=== PATIENT | male | born 1950 | race Caucasian/White ===

== ENCOUNTER 2023-08-06 13:58 | Inpatient (IN) ==
--- NOTE | 2023-08-06 14:12 | Emergency Department Note ---
Impression & Plan Sepsis due to urinary tract infection, Hypoxia ED Provider Note NAME: MONA HAYNES AGE: 73 SEX: M : 1950 ARRIVES VIA: Walk-In INFORMANT: Patient ED PROVIDER(S): Irwin Oliveira DO CHIEF COMPLAINT: AMS HPI: Patient is a 73-year-old male who presents to the ER for altered mental status. Entire history is obtained from who is present at bedside. She notes that last night he started shaking. This lasted for short period of time. It started again today and lasted for over an hour. She notes he started vomiting and was not responding to her and consequently she brought him in. Unable to obtain any review of systems from the patient due to mentation/confusion as he denies all complaints with exception of chronic lower back pain. Additional history is obtained by patient when he woke up and admits that he has been having dysuria urgency and frequency for the past 3 to 4 days. ADDITIONAL HISTORY OBTAINED: Per HPI Chronic Medical/Social Conditions Affecting Care: Per HPI PAST MEDICAL HISTORY:See Below PAST SURGICAL HISTORY:See Below FAMILY HISTORY:See Below SOCIAL HISTORY:See Below HOME MEDICATIONS:See Below ALLERGIES:See Below VITALS:See Below PHYSICAL EXAMINATION: GENERAL: Sitting up in bed, alert, covered in vomit, ill-appearing, confused EYE EXAM: normal conjunctiva. PERRL and EOM's grossly intact. OROPHARYNX: no exudate, no erythema, lips, buccal mucosa, and tongue normal and mucous membranes are moist NECK: supple, no nuchal rigidity, no adenopathy, non-tender LUNGS: Clear to auscultation. Normal chest wall mechanics HEART: Tachycardic, S1 normal and S2 normal ABDOMEN: abdomen soft, non-tender, normo-active bowel sounds, no masses, no rebound or guarding. BACK: Back is symmetrical on inspection and there is no deformity, no midline tenderness, no CVA tenderness. SKIN: no rashes and no bruising UPPER EXTREMITIES: upper extremities are grossly normal. LOWER EXTREMITIES: No pitting edema. NEURO EXAM: Oriented to person but not place or year, cranial nerves II-XII intact, moving all extremities nonfocal MEDICAL DECISION MAKING: Patient is a 73-year-old male who presents the ER altered and confused initially. He was brought back to the resuscitation bay. IVs were established blood work was obtained. Labs show no significant leukocytosis or anemia. INR unremarkable. He was hypoxic and placed on 2 L nasal cannula. VBG with a pH 7.45 and a CO2 of 33. BMP with a slightly elevated glucose at 148. T. bili at 2.1. LFTs troponin was unremarkable. UA is consistent with UTI. Patient was given 2 L IV fluids as well as IV Zosyn initially. CT head of the head chest and abdomen pelvis was unremarkable. Patient was updated bedside. Discussed case with the hospitalist for further evaluation management treatment. Mentation did improve significantly. He did remain on 2 L nasal cannula throughout his stay in the ER. Heart rate did trend down. Consults/Care Managements Discussions: Per MDM Triage Nursing notes reviewed. Limited review of prior medical records performed Vital Signs: reviewed and remarkable for no significant abnormalities Differential diagnosis: Differential diagnosis includes etiologies such as sepsis, UTI, pneumonia, metabolic, electrolyte abnormalities, cardiac sources, intracerebral event, toxicologic, neurological, as well as others were entertained. ER treatment provided: See below Diagnostics interpreted by me include EKG and cardiac monitoring as listed below: -Cardiac Monitoring: An order was placed for continuous cardiac monitoring. The monitor shows a rate of 133 with sinus rhythm. -ECG: Sinus tachycardia rate of 132 Right bundle branch block T wave inversions and nonspecific ST wave changes V1 through V6 QTc 560 -Laboratory studies:Interpreted by me as stated above in MDM and shown below. Imaging studies: Xrays: As interpreted by me: Portable AP upright 1 view the chest shows no focal infiltrate CTs show: CT head chest abdomen pelvis as described above Procedures:none Critical Care: I have personally spent 35 minutes of critical care time in the direct management of this patient. This includes bedside care, interpretation of diagnostic studies, and testing, discussion with consultants, patient, and family members, and other required patient management activities. This 35 minutes is in excess of all separately billable procedures. Past Med/Surg History Problem List (Updated 08/06/23 @ 20:20 by Irwin Oliveira DO) Hypoxia (Acute) History of psoriasis Aspiration into airway Sepsis due to urinary tract infection (Acute) Social History Smoking Status: Never smoker Feels Safe at Home: Yes Allergies Allergies Allergy/AdvReac Type Severity Reaction Status Date / Time No Known Allergies Allergy Unverified 08/06/23 15:32 Home Meds Home Medications Medication Instructions Recorded Confirmed acetaminophen 500 mg tablet 1,000 mg PO Q6H PRN Pain 08/06/23 08/06/23 (Tylenol Extra Strength) diazepam 5 mg tablet 5 mg PO Q8 PRN Anxiety 08/06/23 08/06/23 doxycycline hyclate 50 mg capsule 50 mg PO DAILY 08/06/23 08/06/23 ergocalciferol (vitamin D2) 1,250 1,250 mcg PO WK 08/06/23 08/06/23 mcg (50,000 unit) capsule ibuprofen 200 mg tablet (Advil) 600 - 800 mg PO Q6H PRN Pain 08/06/23 08/06/23 ketoconazole 2 % shampoo 1 applic topical 2XWK 08/06/23 08/06/23 naproxen 500 mg tablet 500 mg PO BID 08/06/23 08/06/23 Results & Data (ED) Vital Signs Vital Signs - 24 hr 08/06/23 14:11 08/06/23 14:31 08/06/23 14:57 Temperature 38.5 C H Temperature Source Oral Pulse Rate 134 H 106 H Pulse Rate from SpO2 Sensor 106 H Respiratory Rate 22 24 Respiratory Effort / Characteristics Non-Labored Spontaneous Respiratory Depth Normal Respiratory Pattern Regular Blood Pressure 169/90 H 160/84 H Blood Pressure Mean 116 109 Blood Pressure Position Lying Pulse Oximetry 88 L 92 96 Oxygen Delivery Method Room Air Oxymask Oxymask Oxygen Flow Rate 5 5 Sepsis Recent Fever Within 48 Hours Yes Sepsis New/Unexplained Change in Mental Status Yes Sepsis Action Taken by Nursing Physician Notified 08/06/23 15:00 Temperature Temperature Source Pulse Rate 106 H Pulse Rate from SpO2 Sensor 105 H Respiratory Rate 24 Respiratory Effort / Characteristics Respiratory Depth Respiratory Pattern Blood Pressure 146/81 H Blood Pressure Mean 102 Blood Pressure Position Pulse Oximetry 95 Oxygen Delivery Method Oxymask Oxygen Flow Rate 5 Sepsis Recent Fever Within 48 Hours Sepsis New/Unexplained Change in Mental Status Sepsis Action Taken by Nursing Laboratory Data 08/06/23 14:06 08/06/23 14:06 Lab Results 08/06/23 08/06/23 08/06/23 Range/Units 14:06 14:18 14:22 WBC 5.35 (4.8-10.8) K/ul RBC 4.88 (4.70-6.10) M/uL Hgb 16.3 (14.0-18.0) g/dl POC Hgb 16.7 (14.0-18.0) g/dl Hct 45.9 (42.0-52.0) % POC Hct 49 (42-52) % MCV 94.1 (80.0-100.0) fL MCH 33.4 (25.0-34.0) pg MCHC 35.5 (32.0-36.0) g/dL RDW Std Deviation 44.5 (36.4-46.3) fL RDW Coeff of Gabriel 13.1 (11.5-14.5) % Plt Count 142 (130-400) K/uL MPV 9.7 (9.4-12.4) fL Immature Gran % (Auto) 0.2 % Neut % (Auto) 84.3 % Lymph % (Auto) 12.5 % [place] % (Auto) 1.3 % Eos % (Auto) 1.3 % Baso % (Auto) 0.4 % Neut # (Auto) 4.51 (1.40-6.50) K/uL Lymph # (Auto) 0.67 L (1.20-3.40) K/uL [place] # (Auto) 0.07 L (0.11-0.59) K/uL Eos # (Auto) 0.07 (0.00-0.50) K/uL Baso # (Auto) 0.02 (0.00-0.20) K/uL Immature Gran # (Auto) 0.01 (0.01-0.20) K/uL PT 10.4 (9.0-12.0) Seconds INR 1.0 (0.9-1.1) VBG pH 7.45 H (7.36-7.41) VBG pCO2 33 L (38-50) mmHg VBG pO2 52 mmHg VBG HCO3 23 mmol/L VBG O2 Saturation 87.0 % VBG Base Excess -0.3 mEq/L POC Sodium 138 (135-144) mmol/L Sodium 136 (136-145) mmol/L POC Potassium 3.6 (3.3-5.0) mmol/L Potassium 3.6 (3.5-5.1) mmol/L POC Chloride 103 (101-112) mmol/L Chloride 103 (98-107) mmol/L Carbon Dioxide 23 (21-32) mmol/L POC Total CO2 21 L (24-31) mmol/L Anion Gap 10 (3-11) POC Anion Gap 19.0 (16-25) mmol/L POC BUN 15 (7-18) mg/dl BUN 17 (6-23) mg/dl Creatinine 0.88 (0.6-1.4) mg/dl POC Creatinine 0.8 (0.6-1.3) mg/dl Est Cr Clr Drug Dosing 89.0 ml/min Est GFR ( Amer) 100.2 ml/min Est GFR (Non-Af Amer) 86.4 ml/min BUN/Creatinine Ratio 19.3 (10-20) Glucose 148 H (70-99(Fasting)) mg/dl POC Glucose (other) 145 H (70-99) mg/dl Lactate 2.0 (0.4-2.0) mmol/L Calcium 9.5 (8.6-10.3) mg/dl POC Ioniz Calcium Connie 1.14 (1.12-1.32) mmol/l Magnesium 1.7 (1.7-2.4) mg/dl Total Bilirubin 2.1 H (0.2-1.0) mg/dl Direct Bilirubin 0.2 (0-0.2) mg/dl AST 24 (13-39) U/L ALT 23 (7-52) U/L Alkaline Phosphatase 78 (34-104) U/L Troponin I High Sens 13.1 (0-20) pg/ml Total Protein 7.7 (6.0-8.3) gm/dl Albumin 4.7 (3.4-5.0) gm/dl Procalcitonin 0.15 (0-0.5) ng/ml Urine Color Urine Appearance (Clear) Urine pH (4.5-7.5) Ur Specific [place] (1.000-1.030) Urine Protein (Negative) Urine Glucose (UA) (Negative) Urine Ketones (Negative) Urine Blood (Negative) Urine Nitrite (Negative) Urine Bilirubin (Negative) Urine Urobilinogen (Negative) Ur Leukocyte Esterase (Negative) Urine WBC (Auto) (0-5) /hpf Urine RBC (Auto) (0-2) /hpf U Hyaline Cast (Auto) (0-2) /lpf U Epithel Cells (Auto) (0-2) /hpf Urine Bacteria (Auto) (None Seen) 08/06/23 Range/Units 14:35 WBC (4.8-10.8) K/ul RBC (4.70-6.10) M/uL Hgb (14.0-18.0) g/dl POC Hgb (14.0-18.0) g/dl Hct (42.0-52.0) % POC Hct (42-52) % MCV (80.0-100.0) fL MCH (25.0-34.0) pg MCHC (32.0-36.0) g/dL RDW Std Deviation (36.4-46.3) fL RDW Coeff of Gabriel (11.5-14.5) % Plt Count (130-400) K/uL MPV (9.4-12.4) fL Immature Gran % (Auto) % Neut % (Auto) % Lymph % (Auto) % [place] % (Auto) % Eos % (Auto) % Baso % (Auto) % Neut # (Auto) (1.40-6.50) K/uL Lymph # (Auto) (1.20-3.40) K/uL [place] # (Auto) (0.11-0.59) K/uL Eos # (Auto) (0.00-0.50) K/uL Baso # (Auto) (0.00-0.20) K/uL Immature Gran # (Auto) (0.01-0.20) K/uL PT (9.0-12.0) Seconds INR (0.9-1.1) VBG pH (7.36-7.41) VBG pCO2 (38-50) mmHg VBG pO2 mmHg VBG HCO3 mmol/L VBG O2 Saturation % VBG Base Excess mEq/L POC Sodium (135-144) mmol/L Sodium (136-145) mmol/L POC Potassium (3.3-5.0) mmol/L Potassium (3.5-5.1) mmol/L POC Chloride (101-112) mmol/L Chloride (98-107) mmol/L Carbon Dioxide (21-32) mmol/L POC Total CO2 (24-31) mmol/L Anion Gap (3-11) POC Anion Gap (16-25) mmol/L POC BUN (7-18) mg/dl BUN (6-23) mg/dl Creatinine (0.6-1.4) mg/dl POC Creatinine (0.6-1.3) mg/dl Est Cr Clr Drug Dosing ml/min Est GFR ( Amer) ml/min Est GFR (Non-Af Amer) ml/min BUN/Creatinine Ratio (10-20) Glucose (70-99(Fasting)) mg/dl POC Glucose (other) (70-99) mg/dl Lactate (0.4-2.0) mmol/L Calcium (8.6-10.3) mg/dl POC Ioniz Calcium Connie (1.12-1.32) mmol/l Magnesium (1.7-2.4) mg/dl Total Bilirubin (0.2-1.0) mg/dl Direct Bilirubin (0-0.2) mg/dl AST (13-39) U/L ALT (7-52) U/L Alkaline Phosphatase (34-104) U/L Troponin I High Sens (0-20) pg/ml Total Protein (6.0-8.3) gm/dl Albumin (3.4-5.0) gm/dl Procalcitonin (0-0.5) ng/ml Urine Color Yellow Urine Appearance Turbid A (Clear) Urine pH 6.5 (4.5-7.5) Ur Specific [place] 1.014 (1.000-1.030) Urine Protein Trace H (Negative) Urine Glucose (UA) Negative (Negative) Urine Ketones Negative (Negative) Urine Blood 1+ H (Negative) Urine Nitrite Positive A (Negative) Urine Bilirubin Negative (Negative) Urine Urobilinogen Negative (Negative) Ur Leukocyte Esterase 3+ H (Negative) Urine WBC (Auto) >50 H (0-5) /hpf Urine RBC (Auto) 3-5 H (0-2) /hpf U Hyaline Cast (Auto) 0-2 (0-2) /lpf U Epithel Cells (Auto) 0-2 (0-2) /hpf Urine Bacteria (Auto) 4+ H (None Seen) Administered Medications Acetaminophen (Acetaminophen 325 Mg Tab) 650 mg PO Q4H PRN PRN Reason: pain/fever Stop: 09/05/23 19:13 Last Admin: 08/06/23 19:50 Dose: 650 mg Documented By: ALISTAIR Sodium Chloride (Nss) 1,000 mls @ 100 mls/hr IV .Q10H NAWAF Stop: 09/05/23 19:13 Last Admin: 08/06/23 19:50 Dose: 100 mls/hr Documented By: ALISTAIR Discontinued Medications Acetaminophen (Acetaminophen 650 Mg Supp) 650 mg MI NOW STA Stop: 08/06/23 14:09 Last Admin: 08/06/23 15:06 Dose: Not Given Documented By: GARLAND Acetaminophen (Acetaminophen 325 Mg Tab) 650 mg PO NOW STA Stop: 08/06/23 14:59 Last Admin: 08/06/23 15:03 Dose: 650 mg Documented By: GARLAND Sodium Chloride (Nss) 1,000 mls @ 999 mls/hr IV .Q1H1M NAWAF Stop: 08/06/23 16:15 Last Infusion: 08/06/23 18:23 Dose: Infused Documented By: Admin: 08/06/23 17:22 Dose: 999 mls/hr Documented By: Infusion: 08/06/23 16:52 Dose: Infused Documented By: [facility] [place] Admin: 08/06/23 15:06 Dose: 999 mls/hr Documented By: GARLAND Piperacillin Sod/Tazobactam Sod (Zosyn) 4.5 gm in 100 mls @ 200 mls/hr IV NOW ONE Stop: 08/06/23 14:37 Last Infusion: 08/06/23 16:53 Dose: Infused Documented By: [facility] [place] Admin: 08/06/23 15:06 Dose: 200 mls/hr Documented By: GARLAND Ioversol (Optiray 320 125ml) 119 ml IV ONCE ONE Stop: 08/06/23 14:48 Last Admin: 08/06/23 14:47 Dose: 119 ml Documented By: GENARO Ondansetron HCl (Ondansetron Inj 2 Mg/Ml 2 Ml Vial) 4 mg IV NOW STA Stop: 08/06/23 14:59 Last Admin: 08/06/23 15:03 Dose: 4 mg Documented By: GARLAND Imaging Data Radiologist's Impression: Abdomen/Pelvis CT 08/06/23 14:06 CT abd pelvis IV con only CLINICAL HISTORY: sepsis TECHNIQUE: Helical axial images of the abdomen and pelvis were obtained and displayed. Automated dose lowering techniques and/or adjustment according to patient size were utilized for this exam. This exam was performed with intravenous contrast. CT DOSE: 3310.69 mGy.cm COMPARISON: None available at the time of this dictation. FINDINGS: Lower chest: Bibasilar atelectasis versus scarring is seen. Liver: Unremarkable. No focal lesions are seen. Gallbladder and biliary tree: No calcified gallstones. Normal caliber wall. No intra- or extrahepatic biliary ductal dilation. Pancreas: Unremarkable, no focal lesions. Spleen: Unremarkable. Adrenals: Unremarkable. Kidneys and ureters: Renal cysts are seen. Partial kidney is seen. Bladder: Unremarkable. Reproductive organs: Prostatic calcifications are seen which may represent prior hemorrhage or granulomatous disease. Bowel: The appendix is normal. There is a small hiatal hernia. Lymph nodes Retroperitoneal: Unremarkable. Pelvic: Unremarkable. Mesenteric: Unremarkable. Peritoneum: Normal. Vessels: Unremarkable. Abdominal wall: Unremarkable. Bones: Degenerative changes in the visualized spine. Grade 1 anterolisthesis is seen at L4-L5. IMPRESSION: No acute abnormalities and in particular no evidence of bowel obstruction. There is a small hiatal hernia which may be seen in gastroesophageal reflux. ACT 112: Negative or not required by law. Electronically signed by: Mark Malhotra M.D. 08/06/2023 3:17 PM Chest CTA 08/06/23 14:06 CT ANGIOGRAPHY OF THE CHEST, PULMONARY EMBOLUS PROTOCOL CLINICAL HISTORY: Vomiting. Diaphoresis. Evaluate for pulmonary embolus. COMPARISON STUDY: No previous studies for comparison. TECHNIQUE: Following IV administration of 119 mL of Optiray, helical axial images of the chest were obtained utilizing the pulmonary embolus protocol. Maximal intensity projections and sagittal and coronal reformats were viewed on an independent 3D workstation. IV contrast was administered without complication. Automated exposure control was utilized for the study. A dose lowering technique was utilized adhering to the principles of ALARA. FINDINGS: Left shoulder arthroplasty is incidentally noted. No pulmonary emboli are identified. There is no thoracic aortic dissection. Size of the heart is normal. There is no pericardial effusion. No enlarged axillary, mediastinal or hilar lymph nodes are present. There is no consolidation to suggest pneumonia. Subpleural opacities represent atelectasis. There is no pneumothorax or pleural effusion. There are multiple old left-sided rib fractures. No suspicious pulmonary nodules. No acute fractures within the bony thorax are present. Abdomen and pelvis CT will be reported separately. IMPRESSION: 1. No pulmonary emboli identified. 2. No acute intrathoracic findings. ACT 112: Negative or not required by law. Electronically signed by: Trey Reid M.D. 08/06/2023 3:17 PM Chest X-Ray 08/06/23 14:06 XR chest 1V portable CLINICAL HISTORY: Sepsis TECHNIQUE: Single frontal radiograph of the chest was obtained. Comparison: None available at the time of this dictation. FINDINGS: Left reverse shoulder arthroplasty is seen. Calcified aortic knob is seen. The lungs are clear. No evidence of pleural effusion or pneumothorax. IMPRESSION: No acute chest disease. ACT 112: Negative or not required by law. Electronically signed by: Mark Malhotra M.D. 08/06/2023 2:[address] 08/06/23 14:06 CT SCAN OF THE BRAIN WITHOUT IV CONTRAST CLINICAL HISTORY: Change in mental status. COMPARISON STUDY: No priors. TECHNIQUE: Unenhanced axial CT scan of the brain is performed from the vertex to the skull base. A dose lowering technique was utilized adhering to the principles of ALARA. FINDINGS: Brain parenchyma: There is age-related involutional change noting mild subcortical and periventricular microangiopathic disease. There is no hemorrhage, mass effect, or evidence of acute territorial ischemia by CT criteria. Carias-white matter differentiation is preserved. No extra-axial fluid collection is seen. Ventricles, sulci, cisterns: Prominent secondary to involutional change. Intracranial vasculature: There is atherosclerotic calcification of the cavernous carotid and vertebral arteries. Calvarium: Unremarkable. Sinuses and mastoids: The visualized paranasal sinuses are clear. The mastoid air cells are well pneumatized. Orbits: The bony orbits are grossly intact. IMPRESSION: There is no hemorrhage, mass effect, or evidence of acute territorial ischemia by CT criteria. ACT 112: Negative or not required by law. Electronically signed by: Obed Alvarez M.D. 08/06/2023 3:12 PM Discharge Plan Visit Data Chief Complaint: Illness Stated Complaint: SHAKES, VOMITING ED Provider: Irwin Oliveira Discharge Problem: Sepsis due to urinary tract infection, Hypoxia Patient Disposition: Admitted As Inpatient Discharge Instructions Interventions: ED Discharge Assessment Last Done: 08/06/23 18:25
[2023-08-06 14:21] LABS: Base Excess VBG -0.3 mEq/L; HCO3 VBG 23 mmol/L; PCO2 VBG 33 mmHg (38-50); PO2 VBG 52 mmHg; pH VBG 7.45 (7.36-7.41)
[2023-08-06 14:23] LABS: Basophils # (auto) 0.02 K/uL (0.00-0.20); Basophils % (auto) 0.4 %; Eosinophils # (auto) 0.07 K/uL (0.00-0.50); Eosinophils % (auto) 1.3 %; Hematocrit (blood only) 45.9 % (42.0-52.0); Hemoglobin 16.3 g/dl (14.0-18.0); Immature Granulocytes # (auto) 0.01 K/uL (0.01-0.20); Immature Granulocytes % (auto) 0.2 %; Lymphocytes # (auto) 0.67 K/uL (1.20-3.40); Lymphocytes % (auto) 12.5 %; Mean Corpuscular Hemoglobin 33.4 pg (25.0-34.0); Mean Corpuscular Hgb Conc 35.5 g/dL (32.0-36.0); Mean Corpuscular Volume 94.1 fL (80.0-100.0); Mean Platelet Volume 9.7 fL (9.4-12.4); Monocytes # (auto) 0.07 K/uL (0.11-0.59); Monocytes % (auto) 1.3 %; Neutrophils # (auto) 4.51 K/uL (1.40-6.50); Neutrophils % (auto) 84.3 %; Platelet Count 142 K/uL (130-400); RDW Coefficient of Variation 13.1 % (11.5-14.5); RDW Standard Deviation 44.5 fL (36.4-46.3); Red Blood Count 4.88 M/uL (4.70-6.10); White Blood Count 5.35 K/ul (4.8-10.8)
[2023-08-06 14:32] LABS: iSTAT Creatinine 0.8 mg/dl (0.6-1.3); iSTAT Hemoglobin 16.7 g/dl (14.0-18.0); iSTAT Ionized Calcium 1.14 mmol/l (1.12-1.32); iSTAT Potassium 3.6 mmol/L (3.3-5.0)
[2023-08-06 14:44] LABS: Albumin Level 4.7 gm/dl (3.4-5.0); BUN Creatinine Ratio 19.3 (10-20); Bilirubin Direct 0.2 mg/dl (0-0.2); Bilirubin,Total 2.1 mg/dl (0.2-1.0); Calcium 9.5 mg/dl (8.6-10.3); Est GFR (African American) 100.2 ml/min; Est GFR (Non-African American) 86.4 ml/min; Magnesium 1.7 mg/dl (1.7-2.4); Potassium 3.6 mmol/L (3.5-5.1); Total Protein 7.7 gm/dl (6.0-8.3)
[2023-08-06] MEDS: OPTIRAY 320 125ml IV ONE (14:47)
[2023-08-06 14:48] LABS: Troponin I High Sensitivity 13.1 pg/ml (0-20)
--- NOTE | 2023-08-06 14:57 | XRay Report ---
XR chest 1V portable CLINICAL HISTORY: Sepsis TECHNIQUE: Single frontal radiograph of the chest was obtained. Comparison: None available at the time of this dictation. FINDINGS: Left reverse shoulder arthroplasty is seen. Calcified aortic knob is seen. The lungs are clear. No ev idence of pleural effusion or pneumothorax. IMPRESSION: No acute chest disease. ACT 112: Negative or not required by law. Electronically signed by: Mark Malhotra M.D. 08/06/2023 2:55 PM
[2023-08-06 15:00] LABS: Appearance Urine Turbid (Clear); Bacteria Urine Automated 4+ (None Seen); Bilirubin Urine Negative (Negative); Blood Urine 1+ (Negative); Cast Urine Automated 0-2 /lpf (0-2); Color Urine Yellow; Epithelial Cell Urine Auto 0-2 /hpf (0-2); Glucose Urine UA Negative (Negative); Ketones Urine Negative (Negative); Leukocyte Esterase Urine 3+ (Negative); Nitrite Urine Positive (Negative); Protein Urine Trace (Negative); Specific Gravity Urine 1.014 (1.000-1.030); Urobilinogen Urine Negative (Negative); WBC Urine Automated >50 /hpf (0-5); pH Urine 6.5 (4.5-7.5)
[2023-08-06] MEDS: ONDANSETRON INJ 2 MG/ML 2 ML VIAL IV STA (15:03)
[2023-08-06] MEDS: ACETAMINOPHEN 325 MG TAB PO STA (15:03)
[2023-08-06 15:04] LABS: Prothrombin Time 10.4 Seconds (9.0-12.0)
[2023-08-06] MEDS: SODIUM CHLORIDE 0.9% 1,000 ML IV SCH ×2 (15:06→19:50)
[2023-08-06] MEDS: ACETAMINOPHEN 650 MG SUPP PR STA (15:06)
[2023-08-06] MEDS: PIPERACILLIN/TAZOBACTAM 4.5 GM/100 ML BAG IV ONE (15:06)
--- NOTE | 2023-08-06 15:13 | CT Scan Report ---
CT SCAN OF THE BRAIN WITHOUT IV CONTRAST CLINICAL HISTORY: Change in mental status. COMPARISON STUDY: No priors. TECHNIQUE: Unenhanced axial CT scan of the brain is performed from the vertex to the skull base. A do se lowering technique was utilized adhering to the principles of ALARA. FINDINGS: Brain parenchyma: There is age-related involutional change noting mild subcortical and periventricula r microangiopathic disease. There is no hemorrhage, mass effect, or evidence of acute territorial isc hemia by CT criteria. Carias-white matter differentiation is preserved. No extra-axial fluid collection is seen. Ventricles, sulci, cisterns: Prominent secondary to involutional change. Intracranial vasculature: There is atherosclerotic calcification of the cavernous carotid and vertebr al arteries. Calvarium: Unremarkable. Sinuses and mastoids: The visualized paranasal sinuses are clear. The mastoid air cells are well pneu matized. Orbits: The bony orbits are grossly intact. IMPRESSION: There is no hemorrhage, mass effect, or evidence of acute territorial ischemia by CT jesika hdz. ACT 112: Negative or not required by law. Electronically signed by: Obed Alvarez M.D. 08/06/2023 3:12 PM
--- NOTE | 2023-08-06 15:19 | CT Scan Report ---
CT ANGIOGRAPHY OF THE CHEST, PULMONARY EMBOLUS PROTOCOL CLINICAL HISTORY: Vomiting. Diaphoresis. Evaluate for pulmonary embolus. COMPARISON STUDY: No previous studies for comparison. TECHNIQUE: Following IV administration of 119 mL of Optiray, helical axial images of the chest were o btained utilizing the pulmonary embolus protocol. Maximal intensity projections and sagittal and cor onal reformats were viewed on an independent 3D workstation. IV contrast was administered without co mplication. Automated exposure control was utilized for the study. A dose lowering technique was ut ilized adhering to the principles of ALARA. FINDINGS: Left shoulder arthroplasty is incidentally noted. No pulmonary emboli are identified. Ther e is no thoracic aortic dissection. Size of the heart is normal. There is no pericardial effusion. No enlarged axillary, mediastinal or hilar lymph nodes are present. There is no consolidation to sugges t pneumonia. Subpleural opacities represent atelectasis. There is no pneumothorax or pleural effusion . There are multiple old left-sided rib fractures. No suspicious pulmonary nodules. No acute fracture s within the bony thorax are present. Abdomen and pelvis CT will be reported separately. IMPRESSION: 1. No pulmonary emboli identified. 2. No acute intrathoracic findings. ACT 112: Negative or not required by law. Electronically signed by: Trey Reid M.D. 08/06/2023 3:17 PM
--- NOTE | 2023-08-06 15:19 | CT Scan Report ---
CT abd pelvis IV con only CLINICAL HISTORY: sepsis TECHNIQUE: Helical axial images of the abdomen and pelvis were obtained and displayed. Automated dose lowering techniques and/or adjustment according to patient size were utilized for this exam. This e xam was performed with intravenous contrast. CT DOSE: 3310.69 mGy.cm COMPARISON: None available at the time of this dictation. FINDINGS: Lower chest: Bibasilar atelectasis versus scarring is seen. Liver: Unremarkable. No focal lesions are seen. Gallbladder and biliary tree: No calcified gallstones. Normal caliber wall. No intra- or extrahepatic biliary ductal dilation. Pancreas: Unremarkable, no focal lesions. Spleen: Unremarkable. Adrenals: Unremarkable. Kidneys and ureters: Renal cysts are seen. Partial kidney is seen. Bladder: Unremarkable. Reproductive organs: Prostatic calcifications are seen which may represent prior hemorrhage or granul omatous disease. Bowel: The appendix is normal. There is a small hiatal hernia. Lymph nodes Retroperitoneal: Unremarkable. Pelvic: Unremarkable. Mesenteric: Unremarkable. Peritoneum: Normal. Vessels: Unremarkable. Abdominal wall: Unremarkable. Bones: Degenerative changes in the visualized spine. Grade 1 anterolisthesis is seen at L4-L5. IMPRESSION: No acute abnormalities and in particular no evidence of bowel obstruction. There is a small hiatal he rnia which may be seen in gastroesophageal reflux. ACT 112: Negative or not required by law. Electronically signed by: Mark Malhotra M.D. 08/06/2023 3:17 PM
--- NOTE | 2023-08-06 15:26 | Electrocardiogram Report ---
Test Reason : Blood Pressure : / mmHG Vent. Rate : 132 BPM Atrial Rate : 132 BPM P-R Int : 134 ms QRS Dur : 120 ms QT Int : 378 ms P-R-T Axes : 051 026 012 degrees QTc Int : 560 ms Sinus tachycardia Left atrial enlargement Right bundle branch block T wave abnormality, consider inferolateral ischemia Abnormal ECG No previous ECGs available Confirmed by Teto Lawson ([id number]) on 08/06/2023 3:26:09 PM Referred By: REFERRED SELF Confirmed By:Teto Lawson
--- NOTE | 2023-08-06 16:54 | History & Physical Report ---
Date of Service August 06, 2023 Assessment & Plan (1) Sepsis due to urinary tract infection: (2) Hypoxia: (3) Aspiration into airway: (4) History of psoriasis: Plan Sepsis due to UTI- ongoing dysuria for a week and had rigors over past 3 days. Encephalopathic prior to presentation with vomiting and hypoxia likely due to aspiration. Now improved and back to baseline. Met sepsis criteria with fever, tachycardia, tachypnea but normal WBC, procal and lactic acid. UA with UTI. CT A/P with no acute abnormality. Started on zosyn for UTI and also to cover for suspected aspiration. WIll continue zosyn pending final blood and urine clx results. Continue gentle IVF. Hypoxia- likely due to aspiration from vomiting. Was on 5 L, now on room air and saturating 93%. Resolved. CT chest with no PE or acute abnormality. Acute encephalopathy from sepsis- resolved. Now on baseline, CT head unremarkable History of psoriasis- takes meds daily, unknown. will bring the meds. DVT ppx- sc lovenox Dispo- Medsurg on tele Updated at bedside Time spent- Approx 75 mins Full code History of Present Illness Chief Complaint: UTI, Rigors, vomiting Primary Care Provider: NO PCP Herb Martinez is a 73y/o M with history of psoriasis who presented to the ED for evaluation of illness x 1 week. History obtained from patient, at bedside and associated chart review. Patient states he has been feeling ill for the past week. Mentions he has been experiencing shakes/chills for the last 3 days. Has had urinary infections before, approximately 3x. Patient is from [place] and was going to [place] for a concert; subsequently got sick during the car ride. His shakes/chills got worse, and he ultimately threw up in the car. Patient really doesn't remember what happened in the car. denies any wheezing, just projectile vomiting x 2 occurrences. Patient does not smoke, does not drink alcohol regularly. states that his feet have been swollen lately, doesn't notice any changes in the swelling throughout the day. No known fevers per his . His urine was malodorous today, no overt color change of his urine noted. PMH- Psoriasis PSH- not significant FH- not pertinent Social history- does not smoke or drink alcohol NKDA Allergies Allergy/AdvReac Type Severity Reaction Status Date / Time No Known Allergies Allergy Unverified 08/06/23 15:32 Home Medications Medication Instructions Recorded Confirmed Type acetaminophen 500 mg tablet 1,000 mg PO Q6H PRN Pain 08/06/23 08/06/23 History (Tylenol Extra Strength) diazepam 5 mg tablet 5 mg PO Q8 PRN Anxiety 08/06/23 08/06/23 History doxycycline hyclate 50 mg capsule 50 mg PO DAILY 08/06/23 08/06/23 History ergocalciferol (vitamin D2) 1,250 1,250 mcg PO WK 08/06/23 08/06/23 History mcg (50,000 unit) capsule ibuprofen 200 mg tablet (Advil) 600 - 800 mg PO Q6H PRN Pain 08/06/23 08/06/23 History ketoconazole 2 % shampoo 1 applic topical 2XWK 08/06/23 08/06/23 History naproxen 500 mg tablet 500 mg PO BID 08/06/23 08/06/23 History Past Med/Surg History Problem List (Updated 08/06/23 @ 17:20 by Demario Strickland MD) Hypoxia History of psoriasis Aspiration into airway Sepsis due to urinary tract infection Social History Smoking Status: Never smoker Feels Safe at Home: Yes Review of Systems Review of Systems: At least ten systems reviewed and negative, except as noted in the HPI. Physical Exam Physical Exam: General: Lying comfortably in bed, not in distress, on room air HEENT: EOMI, CHARLIE, MMM Chest: Clear breath sounds bilaterally, no wheezes or crackles CVS: Regular rate and rhythm, normal heart sounds, no murmur Abdomen: Soft, non tender, not distended, normal bowel sounds Neuro: Awake, alert, oriented, conversing well, non focal Extremities: No cyanosis, clubbing or edema Results & Data Results & Data Vital Signs (Past 12 Hours) Vital Signs Temp Pulse Resp BP Pulse Ox O2 Del Method O2 Flow Rate 08/06/23 16:27 108 H 32 H 121/73 94 Oxymask 5 08/06/23 16:06 108 H 08/06/23 16:00 108 H 32 H 134/82 98 Oxymask 5 08/06/23 15:57 108 H 35 H 134/78 95 Oxymask 5 08/06/23 15:00 106 H 24 146/81 H 95 Oxymask 5 08/06/23 14:57 106 H 24 160/84 H 96 Oxymask 5 08/06/23 14:31 92 Oxymask 5 08/06/23 14:11 38.5 C H 134 H 22 169/90 H 88 L Room Air Laboratory Results Short CBC 08/06/23 Range/Units 14:06 WBC 5.35 (4.8-10.8) K/ul Hgb 16.3 (14.0-18.0) g/dl Hct 45.9 (42.0-52.0) % Plt Count 142 (130-400) K/uL BMP 08/06/23 14:06 Sodium 136 Potassium 3.6 Chloride 103 Carbon Dioxide 23 BUN 17 Creatinine 0.88 Glucose 148 H Calcium 9.5 Liver Function 08/06/23 Range/Units 14:06 Total Bilirubin 2.1 H (0.2-1.0) mg/dl Direct Bilirubin 0.2 (0-0.2) mg/dl AST 24 (13-39) U/L ALT 23 (7-52) U/L Alkaline Phosphatase 78 (34-104) U/L Albumin 4.7 (3.4-5.0) gm/dl Urine 08/06/23 Range/Units 14:35 Urine Color Yellow Urine Appearance Turbid A (Clear) Urine pH 6.5 (4.5-7.5) Ur Specific [place] 1.014 (1.000-1.030) Urine Protein Trace H (Negative) Urine Glucose (UA) Negative (Negative) Diagnostic Findings Abdomen/Pelvis CT 08/06/23 14:06 CT abd pelvis IV con only CLINICAL HISTORY: sepsis TECHNIQUE: Helical axial images of the abdomen and pelvis were obtained and displayed. Automated dose lowering techniques and/or adjustment according to patient size were utilized for this exam. This exam was performed with intravenous contrast. CT DOSE: 3310.69 mGy.cm COMPARISON: None available at the time of this dictation. FINDINGS: Lower chest: Bibasilar atelectasis versus scarring is seen. Liver: Unremarkable. No focal lesions are seen. Gallbladder and biliary tree: No calcified gallstones. Normal caliber wall. No intra- or extrahepatic biliary ductal dilation. Pancreas: Unremarkable, no focal lesions. Spleen: Unremarkable. Adrenals: Unremarkable. Kidneys and ureters: Renal cysts are seen. Partial kidney is seen. Bladder: Unremarkable. Reproductive organs: Prostatic calcifications are seen which may represent prior hemorrhage or granulomatous disease. Bowel: The appendix is normal. There is a small hiatal hernia. Lymph nodes Retroperitoneal: Unremarkable. Pelvic: Unremarkable. Mesenteric: Unremarkable. Peritoneum: Normal. Vessels: Unremarkable. Abdominal wall: Unremarkable. Bones: Degenerative changes in the visualized spine. Grade 1 anterolisthesis is seen at L4-L5. IMPRESSION: No acute abnormalities and in particular no evidence of bowel obstruction. There is a small hiatal hernia which may be seen in gastroesophageal reflux. ACT 112: Negative or not required by law. Electronically signed by: Mark Malhotra M.D. 08/06/2023 3:17 PM Chest CTA 08/06/23 14:06 CT ANGIOGRAPHY OF THE CHEST, PULMONARY EMBOLUS PROTOCOL CLINICAL HISTORY: Vomiting. Diaphoresis. Evaluate for pulmonary embolus. COMPARISON STUDY: No previous studies for comparison. TECHNIQUE: Following IV administration of 119 mL of Optiray, helical axial images of the chest were obtained utilizing the pulmonary embolus protocol. Maximal intensity projections and sagittal and coronal reformats were viewed on an independent 3D workstation. IV contrast was administered without complication. Automated exposure control was utilized for the study. A dose lowering technique was utilized adhering to the principles of ALARA. FINDINGS: Left shoulder arthroplasty is incidentally noted. No pulmonary emboli are identified. There is no thoracic aortic dissection. Size of the heart is normal. There is no pericardial effusion. No enlarged axillary, mediastinal or hilar lymph nodes are present. There is no consolidation to suggest pneumonia. Subpleural opacities represent atelectasis. There is no pneumothorax or pleural effusion. There are multiple old left-sided rib fractures. No suspicious pulmonary nodules. No acute fractures within the bony thorax are present. Abdomen and pelvis CT will be reported separately. IMPRESSION: 1. No pulmonary emboli identified. 2. No acute intrathoracic findings. ACT 112: Negative or not required by law. Electronically signed by: Trey Reid M.D. 08/06/2023 3:17 PM Chest X-Ray 08/06/23 14:06 XR chest 1V portable CLINICAL HISTORY: Sepsis TECHNIQUE: Single frontal radiograph of the chest was obtained. Comparison: None available at the time of this dictation. FINDINGS: Left reverse shoulder arthroplasty is seen. Calcified aortic knob is seen. The lungs are clear. No evidence of pleural effusion or pneumothorax. IMPRESSION: No acute chest disease. ACT 112: Negative or not required by law. Electronically signed by: Mark Malhotra M.D. 08/06/2023 2:[address] 08/06/23 14:06 CT SCAN OF THE BRAIN WITHOUT IV CONTRAST CLINICAL HISTORY: Change in mental status. COMPARISON STUDY: No priors. TECHNIQUE: Unenhanced axial CT scan of the brain is performed from the vertex to the skull base. A dose lowering technique was utilized adhering to the principles of ALARA. FINDINGS: Brain parenchyma: There is age-related involutional change noting mild subcortical and periventricular microangiopathic disease. There is no hemorrhage, mass effect, or evidence of acute territorial ischemia by CT criteria. Carias-white matter differentiation is preserved. No extra-axial fluid collection is seen. Ventricles, sulci, cisterns: Prominent secondary to involutional change. Intracranial vasculature: There is atherosclerotic calcification of the cavernous carotid and vertebral arteries. Calvarium: Unremarkable. Sinuses and mastoids: The visualized paranasal sinuses are clear. The mastoid air cells are well pneumatized. Orbits: The bony orbits are grossly intact. IMPRESSION: There is no hemorrhage, mass effect, or evidence of acute territorial ischemia by CT criteria. ACT 112: Negative or not required by law. Electronically signed by: Obed Alvarez M.D. 08/06/2023 3:12 PM Medications Administered Discontinued Medications Acetaminophen (Acetaminophen 650 Mg Supp) 650 mg ID NOW STA Stop: 08/06/23 14:09 Last Admin: 08/06/23 15:06 Dose: Not Given Documented By: GARLAND Acetaminophen (Acetaminophen 325 Mg Tab) 650 mg PO NOW STA Stop: 08/06/23 14:59 Last Admin: 08/06/23 15:03 Dose: 650 mg Documented By: GARLAND Sodium Chloride (Nss) 1,000 mls @ 999 mls/hr IV .Q1H1M NAWAF Stop: 08/06/23 16:15 Last Admin: 08/06/23 15:06 Dose: 999 mls/hr Documented By: GARLAND Piperacillin Sod/Tazobactam Sod (Zosyn) 4.5 gm in 100 mls @ 200 mls/hr IV NOW ONE Stop: 08/06/23 14:37 Last Admin: 08/06/23 15:06 Dose: 200 mls/hr Documented By: GARLAND Ioversol (Optiray 320 125ml) 119 ml IV ONCE ONE Stop: 08/06/23 14:48 Last Admin: 08/06/23 14:47 Dose: 119 ml Documented By: VERONAK Ondansetron HCl (Ondansetron Inj 2 Mg/Ml 2 Ml Vial) 4 mg IV NOW STA Stop: 08/06/23 14:59 Last Admin: 08/06/23 15:03 Dose: 4 mg Documented By: GARLAND Code Status & VTE Plan Code Status FULL CODE VTE Prophylaxis Plan VTE Prophylaxis will be ordered: Yes Supervising Physician Co-Signing Physician Notes Patient was seen and examined with Joyce ZAZUETA at bedside. Chart reviewed. Case discussed with her and agree with the documentation above. I have edited the HPI, PE and A/P wherever necessary.
[2023-08-06] MEDS ORDERED: diazePAM 5 MG TABLET PO PRN (17:47)
[2023-08-06] MEDS ORDERED: ALUMINUM/MAGNESIUM SUSP 30 ML UDC PO PRN (19:14)
[2023-08-06] MEDS ORDERED: POLYETHYLENE (MIRALAX) 17 GM PACK PO PRN (19:14)
[2023-08-06] MEDS ORDERED: ALBUT/IPRATROP 3MG/0.5MG NEB 3 ML VIAL NEB PRN (19:14)
[2023-08-06] MEDS ORDERED: ONDANSETRON INJ 2 MG/ML 2 ML VIAL IV PRN (19:14)
[2023-08-06] MEDS ORDERED: MAGNESIUM HYDROXIDE SUSP 30 ML UDC PO PRN (19:14)
[2023-08-06] MEDS: ACETAMINOPHEN 325 MG TAB PO PRN (19:50)
[2023-08-06] MEDS: ENOXAPARIN INJ 40 MG/0.4 ML SYR SQ SCH (21:01)
[2023-08-06] MEDS: PIPERACILLIN/TAZOBACTAM 4.5 GM in DEXTROSE 5% MINI-B 100 ML IV ONE (21:01)
[2023-08-06] MEDS: KETOROLAC TROMETHAMINE 15 MG/ML VIAL IV ONE (23:14)
[2023-08-07] MEDS: PIPERACILLIN/TAZOBACTAM 4.5 GM in DEXTROSE 5% MINI-B 100 ML IV SCH (02:22)
[2023-08-07 06:33] LABS: BUN Creatinine Ratio 18.5 (10-20); Calcium 8.3 mg/dl (8.6-10.3); Creatinine Clr Calc Pharmacy 83.4 ml/min; Est GFR (African American) 96.6 ml/min; Est GFR (Non-African American) 83.4 ml/min; Phosphorus 3.1 mg/dl (2.5-4.9)
[2023-08-07 06:35] LABS: Hematocrit (blood only) 38.9 % (42.0-52.0); Hemoglobin 13.2 g/dl (14.0-18.0); Mean Corpuscular Hgb Conc 33.9 g/dL (32.0-36.0); Mean Corpuscular Volume 97.3 fL (80.0-100.0); Mean Platelet Volume 10.1 fL (9.4-12.4); Platelet Count 129 K/uL (130-400); RDW Coefficient of Variation 13.4 % (11.5-14.5); RDW Standard Deviation 48.7 fL (36.4-46.3); White Blood Count 11.18 K/ul (4.8-10.8)
[2023-08-07 08:07] LABS: A calco-baum cmplx NotReported Not Detected (NotDetected); Bact fragilis Not Reported Not Detected (NotDetected); Blood Culture Id Panel See PCR Comment (NotDetected); C auris Not Reported Not Detected (NotDetected); CTX-M Resistant Gene Not Detected (NotDetected); Calbicans Not Reported Not Detected (NotDetected); Candida glabrata Not Reported Not Detected (NotDetected); Candida krusei Not Reported Not Detected (NotDetected); Cneoformans/gatti Not Reported Not Detected (NotDetected); Cparapsilosis Not Reported Not Detected (NotDetected); E cloacae compx Not Reported Not Detected (NotDetected); Efaecalis Not Reported Not Detected (NotDetected); Efaecium Not Reported Not Detected (NotDetected); Enterobacterales DETECTED (NotDetected); Enterobacterales Not Reported DETECTED (NotDetected); Escherichia coli Not Reported DETECTED (NotDetected); H influenzae Not Reported Not Detected (NotDetected); IMP Resistant Gene Not Detected (NotDetected); K aerogenes Not Reported Not Detected (NotDetected); KPC Resistant Gene Not Detected (NotDetected); Koxytoca Not Reported Not Detected (NotDetected); Kpneumoniae grp Not Reported Not Detected (NotDetected); Lmonocyt Not Reported Not Detected (NotDetected); N meningitidis Not Reported Not Detected (NotDetected); NDM Resistant Gene Not Detected (NotDetected); OXA 48 Like Resistant Gene Not Detected (NotDetected); P aeruginosa Not Reported Not Detected (NotDetected); Proteus spp Not Reported Not Detected (NotDetected); Salmonella spp Not Reported Not Detected (NotDetected); Staph lugdunensis Not Reported Not Detected (NotDetected); Staph spp. Not Reported Not Detected (NotDetected); Staphaureus Not Reported Not Detected (NotDetected); Staphepi Not Reported Not Detected (NotDetected); Stenmaltophilia Not Reported Not Detected (NotDetected); Strep agal(GrpB) Not Reported Not Detected (NotDetected); Strep pneum Not Reported Not Detected (NotDetected); Strep pyog (GrpA) Not Reported Not Detected (NotDetected); Strep spp Not Reported Not Detected (NotDetected); VIM Resistant Gene Not Detected (NotDetected); mcr-1 Colistin Resistant Gene Not Detected (NotDetected)
[2023-08-07] MEDS: DOXYCYCLINE HYCLATE 50 MG CAP PO SCH (09:43)
--- NOTE | 2023-08-07 14:12 | Hospitalist Progress Note ---
Date of Service August 07, 2023 Assessment & Plan (1) Sepsis due to urinary tract infection: (2) Hypoxia: (3) Aspiration into airway: (4) History of psoriasis: Plan Sepsis UTI Gram-negative bacteremia Acute metabolic encephalopathy secondary to above --CT Head:There is no hemorrhage, mass effect, or evidence of acute territorial ischemia by CT criteria. --CT ABD:No acute abnormalities and in particular no evidence of bowel obstruction. There is a small hiatal hernia which may be seen in gastroesophageal reflux. -- Blood, urine culture growing gram-negative bacilli --Continue IV Zosyn>> transition to Rocephin Continue IV fluids Mental status back to baseline Hypoxia --CTA:No pulmonary emboli identified. No acute intrathoracic findings. Denies any respiratory issues Hypoxia resolved Saturating well on room air H/O Psoriasis Continue home meds DVT Px SQ Lovenox CODE STATUS Full code Admission and Anticipated Discharge Date Admission Date: August 06, 2023 Subjective Patient is seen and examined at bedside Confusion resolved States having headache and decreased urine output Also reports chronic lower back pain Family at bedside Denies any chest pain, dyspnea, abdominal pain, dysuria, hematuria No other complaints Review of Systems Review of Systems: All systems reviewed & are unremarkable except as noted in Subjective Physical Exam Physical Exam: Physical Exam: Vitals signs as noted above General Appearance:Moderately built and nourished, no apparent distress Head: normocephalic, Atraumatic Eyes: normal inspection, EOMI Neck: supple, Trachea midline Respiratory/Chest: Normal breath sounds, CTA, No accessory muscle use Cardiovascular: S1, S2, No murmur Abdomen/GI:Soft, Non tender, Bowel sounds present Extremities/Musculoskeletal:normal inspection, Trace edema Neurologic/Psych:AAOX3, grossly no focal neurological deficits Skin: normal color, warm Results & Data Results & Data Vital Signs (Past 12 Hours) Vital Signs Temp Pulse Pulse Resp BP Pulse Ox O2 Del Method 08/07/23 11:30 36.9 C 87 18 128/52 L 95 Room Air 08/07/23 09:00 Room Air 08/07/23 07:25 37.1 C 75 18 129/72 95 Room Air 08/07/23 07:21 92 H 08/07/23 03:48 36.9 C 76 16 119/70 98 Room Air Laboratory Results Short CBC 08/06/23 08/07/23 Range/Units 14:06 05:36 WBC 5.35 11.18 H (4.8-10.8) K/ul Hgb 16.3 13.2 L D (14.0-18.0) g/dl Hct 45.9 38.9 L (42.0-52.0) % Plt Count 142 129 L (130-400) K/uL BMP 08/06/23 08/07/23 14:06 05:36 Sodium 136 139 Potassium 3.6 4.0 Chloride 103 106 Carbon Dioxide 23 26 BUN 17 17 Creatinine 0.88 0.92 Glucose 148 H 110 H Calcium 9.5 8.3 L Liver Function 08/06/23 Range/Units 14:06 Total Bilirubin 2.1 H (0.2-1.0) mg/dl Direct Bilirubin 0.2 (0-0.2) mg/dl AST 24 (13-39) U/L ALT 23 (7-52) U/L Alkaline Phosphatase 78 (34-104) U/L Albumin 4.7 (3.4-5.0) gm/dl Urine 08/06/23 Range/Units 14:35 Urine Color Yellow Urine Appearance Turbid A (Clear) Urine pH 6.5 (4.5-7.5) Ur Specific [place] 1.014 (1.000-1.030) Urine Protein Trace H (Negative) Urine Glucose (UA) Negative (Negative)
[2023-08-07] MEDS: cefTRIAXone SODIUM 2,000 MG/50 ML BAG IV SCH (14:54)
--- NOTE | 2023-08-07 17:12 | Communication Note ---
Date of Service: August 07, 2023 Noted to have urinary retention. Bladder scan [address] Matthew catheter. Start on Flomax. Will consult urology tomorrow.
[2023-08-07] MEDS: TAMSULOSIN HCL 0.4 MG CAP PO SCH (21:12)
[2023-08-08 06:08] LABS: BUN Creatinine Ratio 15.9 (10-20); Calcium 8.3 mg/dl (8.6-10.3); Creatinine Clr Calc Pharmacy 93.5 ml/min; Est GFR (African American) 103.1 ml/min; Potassium 4.1 mmol/L (3.5-5.1)
[2023-08-08 06:09] LABS: Hematocrit (blood only) 37.4 % (42.0-52.0); Hemoglobin 12.6 g/dl (14.0-18.0); Mean Corpuscular Hemoglobin 33.2 pg (25.0-34.0); Mean Corpuscular Hgb Conc 33.7 g/dL (32.0-36.0); Mean Corpuscular Volume 98.7 fL (80.0-100.0); Mean Platelet Volume 10.1 fL (9.4-12.4); Platelet Count 120 K/uL (130-400); RDW Coefficient of Variation 13.2 % (11.5-14.5); RDW Standard Deviation 48.4 fL (36.4-46.3); Red Blood Count 3.79 M/uL (4.70-6.10); White Blood Count 6.27 K/ul (4.8-10.8)
--- NOTE | 2023-08-08 09:33 | Urology Consultation ---
Date of Consultation August 08, 2023 Assessment & Plan (1) Urinary retention: (2) Sepsis due to urinary tract infection: (3) BPH (benign prostatic hyperplasia): Plan Urinary retention/incomplete emptying likely due to BPH. He will require follow-up with a urologist, [place]. For now, agree with antibiotics, narrow coverage as culture data becomes available. He should have adequate source control with Matthew catheter in place. I would recommend the catheter to stay in place for at least a week to allow bladder rest. Consider adding tamsulosin and finasteride to help with bladder outlet. No role for surgical intervention at this point. Urology will sign off for now, please call with any questions or concerns History of Present Illness Reason for Consultation: Urinary retention, UTI Attending Physician: Sharan Marcial MD History of Present Illness This is a 73[place]year[place] presented to the hospital on 08/06/2023. He was on his way to a concert when he started having fevers/chills/shakes and vomiting. He was brought to the emergency department for further evaluation. Initially WBC was normal (5.35) although increased to 11.8 and has subsequently started to decrease. Creatinine has been within normal limits ranging from 0.82-0.92. Urinalysis in the ED demonstrated 4+ bacteria, 3+ leukocyte esterase, positive nitrites. Urine and blood cultures are currently growing gram-negative rods, E. coli in the urine. A CT scan of the abdomen and pelvis was performed on 08/06/2023. I independently reviewed these images. He has a horseshoe kidney. I do not appreciate any hydronephrosis or stones. There are renal cysts. His bladder is distended and his prostate is somewhat enlarged with central calcifications. Matthew catheter was placed and he has been treated with ceftriaxone. Urology was consulted for urinary retention and UTI. He reports having a history of an elbow procedure approximately 10 years ago. Since then, he feels like he has had some incomplete emptying. He has not been on medications for the prostate recently. Allergies Allergy/AdvReac Type Severity Reaction Status Date / Time No Known Allergies Allergy Unverified 08/06/23 15:32 Home Medications Medication Instructions Recorded Confirmed Type acetaminophen 500 mg tablet 1,000 mg PO Q6H PRN Pain 08/06/23 08/06/23 History (Tylenol Extra Strength) diazepam 5 mg tablet 5 mg PO Q8 PRN Anxiety 08/06/23 08/06/23 History doxycycline hyclate 50 mg capsule 50 mg PO DAILY 08/06/23 08/06/23 History ergocalciferol (vitamin D2) 1,250 1,250 mcg PO WK 08/06/23 08/06/23 History mcg (50,000 unit) capsule ibuprofen 200 mg tablet (Advil) 600 - 800 mg PO Q6H PRN Pain 08/06/23 08/06/23 History ketoconazole 2 % shampoo 1 applic topical 2XWK 08/06/23 08/06/23 History naproxen 500 mg tablet 500 mg PO BID 08/06/23 08/06/23 History Patient History Social History Smoking Status: Never smoker Second Hand Exposure: No; Hx Alcohol Use: No Hx Substance Use: No Preferred Language: [place] Communication Ability: Effective Ibm Mainframe Developer Required: No Beliefs That Will Affect Care: None Current Living Situation: Spouse Other Information That Helps Us Care for You: No Feels Safe at Home: Yes Safety Concerns: Feels Safe At This Time Assistive Devices: Glasses Review of Systems Review of Systems: 12 point review of systems negative exce pt for otherwise indicated. Physical Exam Constitutional: well developed and well nourished; no acute distress Eyes: + anicteric sclerae; pupils not irregula r Respiratory: normal respiratory effort; no respiratory distress, does not use accessory muscles and no cough Cardiovascular: well perfused Gastrointestinal (Abdomen): Inspection/Auscultation: abdomen normal to inspection; abdomen not distended Musculoskeletal: Extremities: extremities normal to inspection Skin: normal turgor; no rashes and no lesions Neurologic: moves all extremities and awake Psychiatric: Orientation: alert and oriented x 3 Genitourinary: Matthew catheter draining with Results & Data Vital Signs (Past 12 Hours) Vital Signs Temp Pulse Pulse Resp BP Pulse Ox O2 Del Method 08/08/23 07:44 36.8 C 75 18 149/88 H 96 Room Air 08/08/23 07:12 74 08/08/23 05:01 73 144/77 H 08/08/23 03:55 36.7 C 81 18 181/75 H 94 Room Air 08/07/23 22:27 37 C 82 18 151/89 H 94 Room Air 08/07/23 22:13 79 PG Care Time/CCT Total # of Minutes Spent Total Time Spent with Patient: Total time spent is greater than 50% in coordination of care (as documented) at patient's floor/unit and/or counseling patient: Coding Level of Care Code 11921 INT INP/OBS CARE 2/55MIN Diagnoses Urinary retention R33.9 Sepsis due to urinary tract infection A41.9; N39.0 BPH (benign prostatic hyperplasia) N40.0
--- NOTE | 2023-08-08 13:10 | Hospitalist Progress Note ---
Date of Service August 08, 2023 Assessment & Plan (1) Sepsis due to urinary tract infection: (2) Hypoxia: (3) Aspiration into airway: (4) History of psoriasis: Plan Sepsis Complicated UTI Gram-negative bacteremia Acute metabolic encephalopathy secondary to above --CT Head:There is no hemorrhage, mass effect, or evidence of acute territorial ischemia by CT criteria. --CT ABD:No acute abnormalities and in particular no evidence of bowel obstruction. There is a small hiatal hernia which may be seen in gastroesophageal reflux. --Urine culture grew E. coli -- Blood culture: Gram-negative bacilli --Repeat blood cultures pending --Continue IV Zosyn Day #1 >> transition to Rocephin Day#2 Received IV fluids Mental status back to baseline Urinary retention H/O BPH Continue Matthew catheter for now Added Flomax Appreciate urology input Voiding trial as outpatient Hypoxia --CTA:No pulmonary emboli identified. No acute intrathoracic findings. Denies any respiratory issues Hypoxia resolved Saturating well on room air H/O Psoriasis Continue home meds DVT Px SQ Lovenox CODE STATUS Full code Admission and Anticipated Discharge Date Admission Date: August 06, 2023 Subjective Patient is seen and examined at bedside States feeling better today Headache resolved Reports feeling constipated Denies any chest pain, dyspnea, abdominal pain, dysuria, hematuria No other complaints Review of Systems Review of Systems: All systems reviewed & are unremarkable except as noted in Subjective Physical Exam Physical Exam: Physical Exam: Vitals signs as noted above General Appearance:Moderately built and nourished, no apparent distress Head: normocephalic, Atraumatic Eyes: normal inspection, EOMI Neck: supple, Trachea midline Respiratory/Chest: Normal breath sounds, CTA, No accessory muscle use Cardiovascular: S1, S2, No murmur Abdomen/GI:Soft, Non tender, Bowel sounds present Extremities/Musculoskeletal:normal inspection, Trace edema Neurologic/Psych:AAOX3, grossly no focal neurological deficits Skin: normal color, warm Results & Data Results & Data Vital Signs (Past 12 Hours) Vital Signs Temp Pulse Pulse Resp BP Pulse Ox O2 Del Method 08/08/23 11:33 36.7 C 82 18 162/84 H 94 Room Air 08/08/23 10:56 Room Air 08/08/23 07:44 36.8 C 75 18 149/88 H 96 Room Air 08/08/23 07:12 74 08/08/23 05:01 73 144/77 H 08/08/23 03:55 36.7 C 81 18 181/75 H 94 Room Air Laboratory Results Short CBC 08/08/23 Range/Units 05:19 WBC 6.27 (4.8-10.8) K/ul Hgb 12.6 L (14.0-18.0) g/dl Hct 37.4 L (42.0-52.0) % Plt Count 120 L (130-400) K/uL BMP 08/08/23 05:19 Sodium 136 Potassium 4.1 Chloride 106 Carbon Dioxide 25 BUN 13 Creatinine 0.82 Glucose 108 H Calcium 8.3 L
[2023-08-08] MEDS: DOCUSATE SODIUM 100 MG CAP PO SCH (17:11)
[2023-08-09 07:14] LABS: Hematocrit (blood only) 38.2 % (42.0-52.0); Mean Corpuscular Hemoglobin 32.7 pg (25.0-34.0); Mean Corpuscular Volume 96.2 fL (80.0-100.0); Platelet Count 142 K/uL (130-400); RDW Coefficient of Variation 12.6 % (11.5-14.5); RDW Standard Deviation 45.2 fL (36.4-46.3); Red Blood Count 3.97 M/uL (4.70-6.10); White Blood Count 4.71 K/ul (4.8-10.8)
[2023-08-09] MEDS: amLODIPine BESYLATE 5 MG TAB PO SCH (09:07)
[2023-08-09] MEDS: cefTRIAXone SODIUM 2,000 MG/50 ML BAG IV SCH (09:08)
[2023-08-09 11:00] LABS: Calcium 8.7 mg/dl (8.6-10.3); Potassium 3.9 mmol/L (3.5-5.1)
[2023-08-09 11:06] LABS: BUN Creatinine Ratio 14.7 (10-20); Creatinine Clr Calc Pharmacy 101.1 ml/min; Est GFR (Non-African American) 92.3 ml/min
--- NOTE | 2023-08-09 12:38 | Hospitalist Progress Note ---
Date of Service August 09, 2023 Assessment & Plan (1) Sepsis due to urinary tract infection: (2) Hypoxia: (3) Aspiration into airway: (4) History of psoriasis: Plan Sepsis Complicated UTI Gram-negative bacteremia Acute metabolic encephalopathy secondary to above --CT Head:There is no hemorrhage, mass effect, or evidence of acute territorial ischemia by CT criteria. --CT ABD:No acute abnormalities and in particular no evidence of bowel obstruction. There is a small hiatal hernia which may be seen in gastroesophageal reflux. --Urine culture grew E. coli -- Blood culture: E.Coli --Repeat Blood Cx:No growth to date --Repeat blood cultures pending --Continue IV Zosyn Day #1 >> transition to Rocephin Day#3 Received IV fluids Mental status back to baseline Discussed with infectious disease: Given E. coli bacteremia--based on sensitivities and prolonged QTc: Recommends Augmentin 875/125 mg 3 times daily to complete 7 day day course Plan to discharge home today Urinary retention H/O BPH Continue Matthew catheter for now Added Flomax Appreciate urology input Voiding trial as outpatient Hypoxia --CTA:No pulmonary emboli identified. No acute intrathoracic findings. Denies any respiratory issues Hypoxia resolved Saturating well on room air H/O Psoriasis Continue home meds DVT Px SQ Lovenox CODE STATUS Full code Admission and Anticipated Discharge Date Admission Date: August 06, 2023 Subjective Patient is seen and examined at bedside Doing well today No new complaints BP slightly elevated Denies any chest pain, dyspnea, abdominal pain, dysuria, hematuria Plan to discharge home today Family at bedside Review of Systems 2 Review of Systems: All systems reviewed & are unremarkable except as noted in Subjective Physical Exam Physical Exam: Physical Exam: Vitals signs as noted above General Appearance:Moderately built and nourished, no apparent distress Head: normocephalic, Atraumatic Eyes: normal inspection, EOMI Neck: supple, Trachea midline Respiratory/Chest: Normal breath sounds, CTA, No accessory muscle use Cardiovascular: S1, S2, No murmur Abdomen/GI:Soft, Non tender, Bowel sounds present Extremities/Musculoskeletal:normal inspection, Trace edema Neurologic/Psych:AAOX3, grossly no focal neurological deficits Skin: normal color, warm Results & Data Results & Data Vital Signs (Past 12 Hours) Vital Signs Temp Pulse Pulse Resp BP Pulse Ox O2 Del Method 08/09/23 11:35 36.8 C 68 20 149/90 H 96 Room Air 08/09/23 07:27 Room Air 08/09/23 07:21 36.5 C 69 20 154/89 H 97 Room Air 08/09/23 07:03 69 08/09/23 03:45 36.7 C 74 18 158/94 H 96 Room Air Laboratory Results Short CBC 08/09/23 Range/Units 06:50 WBC 4.71 L (4.8-10.8) K/ul Hgb 13.0 L (14.0-18.0) g/dl Hct 38.2 L (42.0-52.0) % Plt Count 142 (130-400) K/uL BMP 08/09/23 06:50 Sodium 137 Potassium 3.9 Chloride 104 Carbon Dioxide 28 BUN 11 Creatinine 0.75 Glucose 135 H Calcium 8.7
--- NOTE | 2023-08-09 12:51 | Discharge Summary ---
Date of Service August 09, 2023 Admission HPI Per Admitting Provider Herb Martinez is a 73y/o M with history of psoriasis who presented to the ED for evaluation of illness x 1 week. History obtained from patient, at bedside and associated chart review. Patient states he has been feeling ill for the past week. Mentions he has been experiencing shakes/chills for the last 3 days. Has had urinary infections before, approximately 3x. Patient is from [place] and was going to [place] for a concert; subsequently got sick during the car ride. His shakes/chills got worse, and he ultimately threw up in the car. Patient really doesn't remember what happened in the car. denies any wheezing, just projectile vomiting x 2 occurrences. Patient does not smoke, does not drink alcohol regularly. states that his feet have been swollen lately, doesn't notice any changes in the swelling throughout the day. No known fevers per his . His urine was malodorous today, no overt color change of his urine noted. PMH- Psoriasis PSH- not significant FH- not pertinent Social history- does not smoke or drink alcohol NKDA Admission Exam Per Admitting Provider General: Lying comfortably in bed, not in distress, on room air HEENT: EOMI, CHARLIE, MMM Chest: Clear breath sounds bilaterally, no wheezes or crackles CVS: Regular rate and rhythm, normal heart sounds, no murmur Abdomen: Soft, non tender, not distended, normal bowel sounds Neuro: Awake, alert, oriented, conversing well, non focal Extremities: No cyanosis, clubbing or edema Principal Diagnosis Sepsis Complicated UTI E.Coli Bacteremia Urinary retention Discharge Data Allergies Allergy/AdvReac Type Severity Reaction Status Date / Time No Known Allergies Allergy Unverified 08/06/23 15:32 Consultations 08/06/23 15:35 ED Decision to Admit Stat 08/08/23 08:00 Consult Urology Routine Procedures Performed Laboratory Results WBC 4.71 K/ul (4.8-10.8) L 08/09/23 06:50 RBC 3.97 M/uL (4.70-6.10) L 08/09/23 06:50 Hgb 13.0 g/dl (14.0-18.0) L 08/09/23 06:50 POC Hgb 16.7 g/dl (14.0-18.0) 08/06/23 14:18 Hct 38.2 % (42.0-52.0) L 08/09/23 06:50 POC Hct 49 % (42-52) 08/06/23 14:18 MCV 96.2 fL (80.0-100.0) 08/09/23 06:50 MCH 32.7 pg (25.0-34.0) 08/09/23 06:50 MCHC 34.0 g/dL (32.0-36.0) 08/09/23 06:50 RDW Std Deviation 45.2 fL (36.4-46.3) 08/09/23 06:50 RDW Coeff of Gabriel 12.6 % (11.5-14.5) 08/09/23 06:50 Plt Count 142 K/uL (130-400) 08/09/23 06:50 MPV 10.0 fL (9.4-12.4) 08/09/23 06:50 Immature Gran % (Auto) 0.2 % 08/06/23 14:06 Neut % (Auto) 84.3 % 08/06/23 14:06 Lymph % (Auto) 12.5 % 08/06/23 14:06 Carbon % (Auto) 1.3 % 08/06/23 14:06 Eos % (Auto) 1.3 % 08/06/23 14:06 Baso % (Auto) 0.4 % 08/06/23 14:06 Neut # (Auto) 4.51 K/uL (1.40-6.50) 08/06/23 14:06 Lymph # (Auto) 0.67 K/uL (1.20-3.40) L 08/06/23 14:06 Carbon # (Auto) 0.07 K/uL (0.11-0.59) L 08/06/23 14:06 Eos # (Auto) 0.07 K/uL (0.00-0.50) 08/06/23 14:06 Baso # (Auto) 0.02 K/uL (0.00-0.20) 08/06/23 14:06 Immature Gran # (Auto) 0.01 K/uL (0.01-0.20) 08/06/23 14:06 PT 10.4 Seconds (9.0-12.0) 08/06/23 14:06 INR 1.0 (0.9-1.1) 08/06/23 14:06 VBG pH 7.45 (7.36-7.41) H 08/06/23 14:06 VBG pCO2 33 mmHg (38-50) L 08/06/23 14:06 VBG pO2 52 mmHg 08/06/23 14:06 VBG HCO3 23 mmol/L 08/06/23 14:06 VBG O2 Saturation 87.0 % 08/06/23 14:06 VBG Base Excess -0.3 mEq/L 08/06/23 14:06 POC Sodium 138 mmol/L (135-144) 08/06/23 14:18 Sodium 137 mmol/L (136-145) 08/09/23 06:50 POC Potassium 3.6 mmol/L (3.3-5.0) 08/06/23 14:18 Potassium 3.9 mmol/L (3.5-5.1) 08/09/23 06:50 POC Chloride 103 mmol/L (101-112) 08/06/23 14:18 Chloride 104 mmol/L (98-107) 08/09/23 06:50 Carbon Dioxide 28 mmol/L (21-32) 08/09/23 06:50 POC Total CO2 21 mmol/L (24-31) L 08/06/23 14:18 Anion Gap 5 (3-11) 08/09/23 06:50 POC Anion Gap 19.0 mmol/L (16-25) 08/06/23 14:18 POC BUN 15 mg/dl (7-18) 08/06/23 14:18 BUN 11 mg/dl (6-23) 08/09/23 06:50 Creatinine 0.75 mg/dl (0.6-1.4) 08/09/23 06:50 POC Creatinine 0.8 mg/dl (0.6-1.3) 08/06/23 14:18 Est Cr Clr Drug Dosing 101.1 ml/min 08/09/23 06:50 Est GFR ( Amer) 107.0 ml/min 08/09/23 06:50 Est GFR (Non-Af Amer) 92.3 ml/min 08/09/23 06:50 BUN/Creatinine Ratio 14.7 (10-20) 08/09/23 06:50 Glucose 135 mg/dl (70-99(Fasting)) H 08/09/23 06:50 POC Glucose (other) 145 mg/dl (70-99) H 08/06/23 14:18 Lactate 2.0 mmol/L (0.4-2.0) 08/06/23 14:22 Calcium 8.7 mg/dl (8.6-10.3) 08/09/23 06:50 POC Ioniz Calcium Connie 1.14 mmol/l (1.12-1.32) 08/06/23 14:18 Phosphorus 3.1 mg/dl (2.5-4.9) 08/07/23 05:36 Magnesium 2.0 mg/dl (1.7-2.4) 08/07/23 05:36 Total Bilirubin 2.1 mg/dl (0.2-1.0) H 08/06/23 14:06 Direct Bilirubin 0.2 mg/dl (0-0.2) 08/06/23 14:06 AST 24 U/L (13-39) 08/06/23 14:06 ALT 23 U/L (7-52) 08/06/23 14:06 Alkaline Phosphatase 78 U/L (34-104) 08/06/23 14:06 Troponin I High Sens 13.1 pg/ml (0-20) 08/06/23 14:06 Total Protein 7.7 gm/dl (6.0-8.3) 08/06/23 14:06 Albumin 4.7 gm/dl (3.4-5.0) 08/06/23 14:06 Procalcitonin 0.15 ng/ml (0-0.5) 08/06/23 14:06 Urine Color Yellow 08/06/23 14:35 Urine Appearance Turbid (Clear) A 08/06/23 14:35 Urine pH 6.5 (4.5-7.5) 08/06/23 14:35 Ur Specific [place] 1.014 (1.000-1.030) 08/06/23 14:35 Urine Protein Trace (Negative) H 08/06/23 14:35 Urine Glucose (UA) Negative (Negative) 08/06/23 14:35 Urine Ketones Negative (Negative) 08/06/23 14:35 Urine Blood 1+ (Negative) H 08/06/23 14:35 Urine Nitrite Positive (Negative) A 08/06/23 14:35 Urine Bilirubin Negative (Negative) 08/06/23 14:35 Urine Urobilinogen Negative (Negative) 08/06/23 14:35 Ur Leukocyte Esterase 3+ (Negative) H 08/06/23 14:35 Urine WBC (Auto) >50 /hpf (0-5) H 08/06/23 14:35 Urine RBC (Auto) 3-5 /hpf (0-2) H 08/06/23 14:35 U Hyaline Cast (Auto) 0-2 /lpf (0-2) 08/06/23 14:35 U Epithel Cells (Auto) 0-2 /hpf (0-2) 08/06/23 14:35 Urine Bacteria (Auto) 4+ (None Seen) H 08/06/23 14:35 Enterobacterales (PCR) DETECTED (NotDetected) A 08/06/23 14:22 E. coli (PCR) DETECTED (NotDetected) A 08/06/23 14:22 mcr-1 Colistin Res Gene PCR Not Detected (NotDetected) 08/06/23 14:22 blaIMP Car res Gene PCR Not Detected (NotDetected) 08/06/23 14:22 KPC-Carbap Res Gene PCR Not Detected (NotDetected) 08/06/23 14:22 blaNDM Car Res Gene PCR Not Detected (NotDetected) 08/06/23 14:22 OXA-48 Carbapenem Resis Gene (PCR) Not Detected (NotDetected) 08/06/23 14:22 blaVIM Car Res Gene PCR Not Detected (NotDetected) 08/06/23 14:22 CTX-M Gene Resistance (PCR) Not Detected (NotDetected) 08/06/23 14:22 Bld Cult ID Panel PCR See PCR Comment (NotDetected) 08/06/23 14:22 Impressions Abdomen/Pelvis CT 08/06/23 14:06 CT abd pelvis IV con only CLINICAL HISTORY: sepsis TECHNIQUE: Helical axial images of the abdomen and pelvis were obtained and displayed. Automated dose lowering techniques and/or adjustment according to patient size were utilized for this exam. This exam was performed with intravenous contrast. CT DOSE: 3310.69 mGy.cm COMPARISON: None available at the time of this dictation. FINDINGS: Lower chest: Bibasilar atelectasis versus scarring is seen. Liver: Unremarkable. No focal lesions are seen. Gallbladder and biliary tree: No calcified gallstones. Normal caliber wall. No intra- or extrahepatic biliary ductal dilation. Pancreas: Unremarkable, no focal lesions. Spleen: Unremarkable. Adrenals: Unremarkable. Kidneys and ureters: Renal cysts are seen. Partial kidney is seen. Bladder: Unremarkable. Reproductive organs: Prostatic calcifications are seen which may represent prior hemorrhage or granulomatous disease. Bowel: The appendix is normal. There is a small hiatal hernia. Lymph nodes Retroperitoneal: Unremarkable. Pelvic: Unremarkable. Mesenteric: Unremarkable. Peritoneum: Normal. Vessels: Unremarkable. Abdominal wall: Unremarkable. Bones: Degenerative changes in the visualized spine. Grade 1 anterolisthesis is seen at L4-L5. IMPRESSION: No acute abnormalities and in particular no evidence of bowel obstruction. There is a small hiatal hernia which may be seen in gastroesophageal reflux. ACT 112: Negative or not required by law. Electronically signed by: Mark Malhotra M.D. 08/06/2023 3:17 PM Chest CTA 08/06/23 14:06 CT ANGIOGRAPHY OF THE CHEST, PULMONARY EMBOLUS PROTOCOL CLINICAL HISTORY: Vomiting. Diaphoresis. Evaluate for pulmonary embolus. COMPARISON STUDY: No previous studies for comparison. TECHNIQUE: Following IV administration of 119 mL of Optiray, helical axial images of the chest were obtained utilizing the pulmonary embolus protocol. Maximal intensity projections and sagittal and coronal reformats were viewed on an independent 3D workstation. IV contrast was administered without complicat ion. Automated exposure control was utilized for the study. A dose lowering technique was utilized adhering to the principles of ALARA. FINDINGS: Left shoulder arthroplasty is incidentally noted. No pulmonary emboli are identified. There is no thoracic aortic dissection. Size of the heart is normal. There is no pericardial effusion. No enlarged axillary, mediastinal or hilar lymph nodes are present. There is no consolidation to suggest pneumonia. Subpleural opacities represent atelectasis. There is no pneumothorax or pleural effusion. There are multiple old left-sided rib fractures. No suspicious pulmonary nodules. No acute fractures within the bony thorax are present. Abdomen and pelvis CT will be reported separately. IMPRESSION: 1. No pulmonary emboli identified. 2. No acute intrathoracic findings. ACT 112: Negative or not required by law. Electronically signed by: Trey Reid M.D. 08/06/2023 3:17 PM Chest X-Ray 08/06/23 14:06 XR chest 1V portable CLINICAL HISTORY: Sepsis TECHNIQUE: Single frontal radiograph of the chest was obtained. Comparison: None available at the time of this dictation. FINDINGS: Left reverse shoulder arthroplasty is seen. Calcified aortic knob is seen. The lungs are clear. No evidence of pleural effusion or pneumothorax. IMPRESSION: No acute chest disease. ACT 112: Negative or not required by law. Electronically signed by: Mark Malhotra M.D. 08/06/2023 2:[address] 08/06/23 14:06 CT SCAN OF THE BRAIN WITHOUT IV CONTRAST CLINICAL HISTORY: Change in mental status. COMPARISON STUDY: No priors. TECHNIQUE: Unenhanced axial CT scan of the brain is performed from the vertex to the skull base. A dose lowering technique was utilized adhering to the principles of ALARA. FINDINGS: Brain parenchyma: There is age-related involutional change noting mild subcortical and periventricular microangiopathic disease. There is no hemorrha ge, mass effect, or evidence of acute territorial ischemia by CT criteria. Carias- white matter differentiation is preserved. No extra-axial fluid collection is seen. Ventricles, sulci, cisterns: Prominent secondary to involutional change. Intracranial vasculature: There is atherosclerotic calcification of the cavernous carotid and vertebral arteries. Calvarium: Unremarkable. Sinuses and mastoids: The visualized paranasal sinuses are clear. The mastoid air cells are well pneumatized. Orbits: The bony orbits are grossly intact. IMPRESSION: There is no hemorrhage, mass effect, or evidence of acute territorial ischemia by CT criteria. ACT 112: Negative or not required by law. Electronically signed by: Obed Alvarez M.D. 08/06/2023 3:12 PM Ordered Studies 08/06/23 14:06 CT Abd and Pelvis [CT abd pelvis IV con only] Stat CT angio chest PE protocol Stat CT head/brain wo con Stat Hospital Course (1) Sepsis due to urinary tract infection: (2) Hypoxia: (3) Aspiration into airway: (4) History of psoriasis: Plan Sepsis Complicated UTI Gram-negative bacteremia Acute metabolic encephalopathy secondary to above --CT Head:There is no hemorrhage, mass effect, or evidence of acute territorial ischemia by CT criteria. --CT ABD:No acute abnormalities and in particular no evidence of bowel obstruction. There is a small hiatal hernia which may be seen in gastroesophageal reflux. --Urine culture grew E. coli -- Blood culture: E.Coli --Repeat Blood Cx:No growth to date --Repeat blood cultures pending --Continue IV Zosyn Day #1 >> transition to Rocephin Day#3 Received IV fluids Mental status back to baseline Discussed with infectious disease: Given E. coli bacteremia--based on sensitivities and prolonged QTc: Recommends Augmentin 875/125 mg 3 times daily to complete 7 day course Plan to discharge home today Urinary retention H/O BPH Continue Matthew catheter for now Added Flomax Appreciate urology input Voiding trial as outpatient Hypoxia --CTA:No pulmonary emboli identified. No acute intrathoracic findings. Denies any respiratory issues Hypoxia resolved Saturating well on room air H/O Psoriasis Continue home meds DVT Px SQ Lovenox CODE STATUS Full code Total Time Total Time Spent Total Time Spent (In Minutes): 51 minutes Discharge Plan Discharge Items Patient Disposition: Home - Self-Care Reason For Visit: UROSEPSIS Discharge Diagnosis: Sepsis Complicated UTI E.Coli Bacteremia Urinary retention Activity: Per Instructions section Exercise/Sports: Wait until after follow-up appointment Non-emergency contact: Primary Care Provider and Urologist Call non-emergency contact if: you have any medication questions, your symptoms worsen, your pain is concerning for you and you have a fever Follow-up/Referrals: PCP,NO [Primary Care Provider] - Diet: Heart Healthy Addtl Attending Provider Instructions: Follow-up with your primary care physician in 1 week Follow-up with your urologist in 1 week -- Continue Matthew catheter until follow-up with your primary care physician/urologist. Voiding trial as per your urologist. -- Complete the antibiotic course (Augmentin) as prescribed --Your final blood cultures are pending at the time of discharge. Follow-up with your physician for results. --Your blood pressure was noted to be intermittently elevated while you are hospitalized. Monitor your blood pressure regularly at home. Discuss with your physician for further adjustment of medications as needed. Seek immediate medical attention if your symptoms reoccur or worsen Please take all medications as instructed on discharge list below. Please call if you have any questions or problems. You can reach a [facility] hospitalist on duty at [facility] 24 hours a day by calling [phone] Pending Studies at Discharge: Yes Studies:: Blood Cultures Stand-Alone Forms: My [facility], Smoking Cessation Medications and DC Order Prescriptions: New amlodipine [Norvasc] 5 mg Tablet 2.5 mg PO QAM Qty: 30 0RF tamsulosin 0.4 mg Capsule 0.4 mg PO HS Qty: 30 0RF Advanced Probiotic 625 mg (10 billion cell) Capsule 1 cap PO DAILY Qty: 15 0RF amoxicillin-pot clavulanate 875-125 mg tablet 1 tab PO TID 6 Days Qty: 18 0RF Continued ketoconazole 2 % shampoo 1 applic TOPICAL 2XWK doxycycline hyclate 50 mg capsule 50 mg PO DAILY ergocalciferol (vitamin D2) 1,250 mcg (50,000 unit) capsule 1,250 mcg PO WK diazepam 5 mg tablet 5 mg PO Q8 PRN (Reason: Anxiety) Rx Instructions: use for up to 7 days acetaminophen [Tylenol Extra Strength] 500 mg Tablet 1,000 mg PO Q6H PRN (Reason: Pain) Held naproxen 500 mg tablet 500 mg PO BID Hold Instructions: Hold until further recommendations from your primary care physician ibuprofen [Advil] 200 mg Tablet 600 - 800 mg PO Q6H PRN (Reason: Pain) Hold Instructions: Hold until further recommendations from your primary care physician Discharge Orders: Discharge Order (Routine); Ordered 08/09/23 Ordered By: Sharan Marcial Admission Data Admit Date/Time: 08/06/23 15:57 Attending Provider: Sharan Marcial Admit Provider: Demario Strickland Primary Care Provider: PCP,NO Other Providers: Demario Strickland; Benoit Jang; Anand Miramontes; Willy Agarwal; Linda Morel; Chinmay Lawrence; Madeleine Alvarez; Iveth Jett; Phil Lyn; Lucrecia Gomez; Suraj Tompkins; Guillermo Zeng; Keyshawn Torres
[2023-08-09] MEDS: ADVANCED PROBIOTIC 625 MG CAPSULE PO SCH (13:07)
== END 2023-08-09 14:37 | disposition home or self-care (01) | DRG 871 ==
LOC: ED 13:58 → SUATTDRO 15:57 → 2N 15:57